=== PATIENT | female | born 1965 | race Caucasian/White ===

== ENCOUNTER → 2020-06-25 | Outpatient (CLI) | payer OTHER ==
[~2020-06-25] MED LIST: AIMOVIG AU70 MG/1 ML SQ; ASPIR-LOW81 MG PO; BUTALB-ACETAMI1 EAC1 PO; ELAVIL 10 MG TA10 MG PO; GABAPENTIN300 MG PO; GLUCOPHAGE1000 MG PO; HYDROXYZINE HCL10 MG PO; INDERAL LA80 MG PO; KENALOG 0.5% CR15 GM EXT; KLONOPIN TAB 00.5 MG PO; LASIX20 MG PO; LEXAPRO20 MG PO; LINZESS145 MCG PO; NABUMETONE500 MG PO; NORVASC10 MG PO; OMEPRAZOLE20 MG PO; OXYBUTYNIN CHLO10 MG PO; PHENERGAN 25 MG25 M1 PO; PRINIVIL20 MG PO; PROBIOTIC1 EAC1 PO; TIZANIDINE HCL2 MG PO; VASCEPA1 GM PO; VITAMIN D2000 UNI1 PO; VOLTAREN100 GM TP; ZANTAC150 MG PO; ZOFRAN4 MG PO
== END ==
LOC: KOH-I 08:00
DX: M54.5 Low back pain (principal); M51.36 Other intervertebral disc degeneration, lumbar region; M48.061 Spinal stenosis, lumbar region without neurogenic claudication
CPT/HCPCS: 72148

== ENCOUNTER → 2021-03-22 | Outpatient (CLI) | payer OTHER | LOC: EXRD 10:16 | DX: U07.1 COVID-19 (principal) | CPT/HCPCS: 71046 ==